=== PATIENT | male | born 1970 | race Caucasian/White ===

== ENCOUNTER 2019-08-10 15:02 | Emergency (ER) | payer MEDICAID ==
[~2019-08-10] VITALS: Ht 170.2 cm; Wt 104.3 kg
[2019-08-10 16:25] VITALS: BP 155/95
[2019-08-10] MEDS ORDERED: KETOROLAC TROMETH 60MG/2ML VIAL IM ONE (17:00)
== END 2019-08-10 17:14 | disposition home or self-care (01) ==
LOC: ER 15:15
DX: H66.91 Otitis media, unspecified, right ear (principal)
CPT/HCPCS: 99283; J1885